=== PATIENT | male | born 1980 | race American Indian/Alaskan Native ===

== ENCOUNTER 2017-12-19 12:30 | Outpatient (CLI) | payer OTHER ==
[2017-12-19] MEDS ORDERED: PROVENTIL IH ONE (13:08)
== END 2017-12-19 12:31 | disposition home or self-care (01) ==
LOC: PF 12:30
PROVIDERS: ATTEND Internal Medicine
DX: R06.09 Other forms of dyspnea (principal); D69.6 Thrombocytopenia, unspecified; G62.9 Polyneuropathy, unspecified; I10 Essential (primary) hypertension; M10.9 Gout, unspecified
CPT/HCPCS: 94060; 94640